=== PATIENT | male | born 1960 | race African-American/Black ===

== ENCOUNTER 2024-12-07 08:54 | Day surgery (SDC) | payer OTHER ==
[2024-12-06 10:41] LABS: Urine Protein, UAD TRACE (Negative)
[2024-12-06 10:42] LABS: Hematocrit 39.7 % (41.0-53.0); Hemoglobin 13.2 g/dL (13.5-17.5); Mean Corpuscular Hemoglobin 28.3 pg (28.0-32.0); Mean Corpuscular Volume 85.5 fL (80.0-100.0); Nucleated Red Blood Cells % 0.1 %
[2024-12-06 10:43] LABS: INR 1.05 (0.9-1.15); Partial Thromboplastin Time 30.0 SEC (24.5-34.5); Prothrombin Time 11.1 sec (9.3-11.8)
[2024-12-06 10:51] LABS: Alanine Aminotransferase 32 U/L (7-40); Albumin 4.4 g/dL (3.2-4.8); Alkaline Phosphatase 80 U/L (46-116); Anion Gap 6 (5-15); BUN/Creatinine Ratio 17.0 (10.0-20.0); Blood Urea Nitrogen 18 mg/dL (9-23); Calcium 10.4 mg/dL (8.7-10.4); Carbon Dioxide 31 mmol/L (20-31); Chloride 105 mmol/L (98-107); Glucose 94 mg/dL (74-106); Potassium 4.2 mmol/L (3.5-5.1); Sodium 142 mmol/L (136-145); Total Protein 7.9 g/dL (5.7-8.2)
[2024-12-06 10:52] LABS: Bilirubin, Total 0.7 mg/dL (0.2-1.0)
[~2024-12-07] VITALS: Ht 180.3 cm; Wt 72.6 kg
[~2024-12-07 08:54] MED LIST: LISI20TA56 PO
[2024-12-07 09:05] VITALS: TEMP 98.1
[2024-12-07] MEDS ORDERED: ceFAZolin 2 GM/D5W50ml 50 ML IV ONE (09:09)
[2024-12-07] MEDS ORDERED: SUCCINYLCHOLINE CHLORIDE 20 MG/ML 10ML VIAL IV ONE (09:30)
[2024-12-07] MEDS ORDERED: PROPOFOL 10 MG/ML 20 ML IV ONE (09:36)
[2024-12-07] MEDS ORDERED: fentaNYL CITRATE 100 MCG/2 ML VL ONE (09:36)
[2024-12-07] MEDS ORDERED: HYDROmorphone HCL 2 MG/ML VL/or syr ONE (09:36)
[2024-12-07] MEDS: BUPIVACAINE HCL 0.25% P/F 10 ML VIAL ONE (10:24)
[2024-12-07] MEDS ORDERED: SUGAMMADEX 200mg/2ml Vial (100MG/ML) IV ONE (10:26)
[2024-12-07] MEDS ORDERED: ACE3T PO (10:35)
[2024-12-07 10:37] VITALS: O2SAT 97
--- NOTE | 2024-12-07 10:52 | DVHOP ---
DATE OF SURGERY: 12/07/2024 PREOPERATIVE DIAGNOSIS: Umbilical hernia. POSTOPERATIVE DIAGNOSIS: Umbilical hernia. SURGEON: Boni Riojas MD CHIEF PETROLEUM ENGINEER: Alcides Pope NP ANESTHESIA: General, Dr. Ni PROCEDURE: Repair of umbilical hernia. DESCRIPTION OF PROCEDURE: Under general anesthesia with the patient's skin prepped and draped, an infraumbilical incision was done in a circumumbilical fashion, deepened through adipose tissue which was minimal. The hernia was approximately 3 mm in size and was repaired using nonabsorbable suture. Subsequently, the wound was irrigated and approximated using Monocryl sutures, Dermabond glue, and Steri-Strips. The patient remained stable throughout the procedure and left the operating room following an accurate needle and sponge count. His cousin was thoroughly informed at [phone]. MD OLIVIA Dean/MELLY TID: [id number] RECEIPT: [id number]
[2024-12-07] MEDS ORDERED: ONDANSETRON HCL 4 MG/2 ML VIAL IV ONE (11:00)
[2024-12-07] MEDS ORDERED: ACETAMINOPHEN IV 1000 MG/100ML (10MG/ML) IV PRN (11:00)
[2024-12-07] MEDS ORDERED: HYDROmorphone HCL 2 MG/ML VL/or syr IV PRN (11:00)
[2024-12-07 11:30] VITALS: BP 143/69; PULSE 81; RESP 12; O2SAT 97
== END 2024-12-07 11:45 | disposition home or self-care (01) ==
LOC: SUR 08:54
PROVIDERS: ATTEND Surgery
DX: K42.9 Umbilical hernia without obstruction or gangrene (principal); I10 Essential (primary) hypertension; Z79.899 Other long term (current) drug therapy; Z88.6 Allergy status to analgesic agent
CPT/HCPCS: 36415; 49593; 80053; 81001; 85025; 85610; 85730; 86850; 86900; 86901; J0330; J0690; J1171; J2704; J3010; J3490